=== PATIENT | female | born 1970 | race Caucasian/White ===

== ENCOUNTER 2024-06-23 08:50 | Day surgery (SDC) | payer BC ==
[2024-06-22 13:51] VITALS: BMI 27.6
[2024-06-23] MEDS ORDERED: PROPOFOL 20 ML ONE ×2 (10:48→11:14)
[2024-06-23] MEDS ORDERED: Lidocaine 1% PF 5 ML VIAL ONE (10:58)
== END 2024-06-23 12:45 | disposition home or self-care (01) ==
LOC: SDC 08:50
PROVIDERS: ATTEND Internal Medicine Gastroenterology
PROC: 0DJ08ZZ Inspection of Upper Intestinal Tract, Via Natural or Artificial Opening Endoscopic (ICD-10-PCS; principal; 2024-06-23)
DX: Q61.2 Polycystic kidney, adult type (principal); K76.89 Other specified diseases of liver; R18.8 Other ascites; K76.6 Portal hypertension; K44.9 Diaphragmatic hernia without obstruction or gangrene; I12.9 Hypertensive chronic kidney disease with stage 1 through stage 4 chronic kidney disease, or unspecified chronic kidney disease; N18.9 Chronic kidney disease, unspecified; D63.1 Anemia in chronic kidney disease; Z98.890 Other specified postprocedural states; Z98.51 Tubal ligation status; Z87.59 Personal history of other complications of pregnancy, childbirth and the puerperium; Z79.899 Other long term (current) drug therapy
CPT/HCPCS: J2704